=== PATIENT | female | born 1960 | race Caucasian/White ===

== ENCOUNTER → 2018-04-06 | Outpatient (CLI) | payer BC ==
[~2018-04-06] MED LIST: LEVAQUIN500 M2 PO; LISINOPRIL2.5 MG PO; LOVASTATIN10 MG PO; METFORMIN HCL500 MG PO; METFORMIN500 MG PO; TRULICITY0.75 MG/0. SC
== END | disposition home or self-care (01) ==
LOC: RAD 16:12
DX: M54.2 Cervicalgia (principal); M25.572 Pain in left ankle and joints of left foot; M79.642 Pain in left hand; Z91.81 History of falling